=== PATIENT | male | born 1980 | race Caucasian/White ===

== ENCOUNTER 2019-11-06 01:57 | Emergency (ER) | payer OTHER, SELFPAY ==
--- NOTE | ~2019-11-06 | XR_ITS ---
EXAMINATION: XR chest 2V DATE: 11/06/2019 02:29 INDICATION: Midline chest pain. TECHNIQUE: Frontal and lateral views of the chest were obtained. COMPARISON: None. FINDINGS: The chest demonstrates clear lungs without pneumonia, pleural effusion, or pneumothorax. Th e heart size is normal. IMPRESSION: 1. No acute cardiopulmonary disease. Reviewed, dictated and finalized at location A.
[2019-11-06 01:56] VITALS: BP 117/66; PULSE 92; RESP 15; TEMP 37.4; O2SAT 100
--- NOTE | 2019-11-06 02:04 | ECG_ITS ---
Measurements Intervals [place] Rate: 76 P: 50 MS: 163 QRS: 44 QRSD: 104 T: 26 QT: 337 QTc: 379 Interpretive Statements SINUS RHYTHM WITH SINUS ARRHYTHMIA BASELINE ARTIFACT- I, II, AVR NORMAL ECG Electronically Signed On 11-06-2019 7:03:41 CDT by Eddie Pettit D.O.
[2019-11-06 02:05] VITALS: PULSE 77
[2019-11-06 02:13] LABS: Basophils Percent Auto 0.2 % (0.2-1.2); Eosinophils Absolute Auto 0.2 K/mm3 (0-0.3); Eosinophils Percent Auto 1.4 % (0-4.4); Hematocrit 45.9 % (42.0-52.0); Hemoglobin 15.2 g/dL (14.0-18.0); Immature Granulocyte Absolute 0.05 K/mm3 (0.00-0.031); Immature Granulocyte Percent A 0.4 % (0-0.5); Lymphocytes Absolute Auto 1.98 K/mm3 (0.9-3.2); Lymphocytes Percent Auto 15.3 % (18.3-44.2); Mean Corpuscular HGB Conc 33.1 g/dl (32-36); Mean Corpuscular Hemoglobin 28.3 pg (26-34); Mean Corpuscular Volume 85.5 fl (80-100); Mean Platelet Volume 10.6 fl (7.4-10.4); Monocytes Percent Auto 7.7 % (2.6-8.5); Neutrophils Absolute Auto 9.7 K/mm3 (1.3-6.7); Platelet Count Result 352 k/mm3 (150-375); Red Blood Count 5.37 M/mm3 (4.6-6.20); Red Cell Distribution Width 12.7 % (11.5-14.5); White Blood Count 12.9 K/mm3 (4.5-10.0)
[2019-11-06 02:22] LABS: Prothrombin Time 12.6 Seconds (11.1-14.7)
[2019-11-06 02:23] LABS: Partial Thromboplastin Time 26.2 SECONDS (22.3-36.8)
[2019-11-06 02:34] LABS: Blood Urea Nitrogen 12 mg/dL (9-20); Calcium 9.2 mg/dL (8.4-10.2); Carbon Dioxide 23 mmol/L (22-30); Chloride 104 mmol/L (98-107); Estimated CRCL calculation 89 ml/min; Estimated Glomerular Filt Rate > 60; Glucose 147 mg/dL (75-110); Potassium 3.2 mmol/L (3.4-5.0); Sodium 136 mmol/L (137-145)
[2019-11-06 02:46] LABS: Troponin I < 0.012 ng/mL (0.000-0.034)
--- NOTE | 2019-11-06 03:30 | ED.CHESTPAIN ---
HPI - Chest Pain General Chief Complaint: Chest Pain Stated Complaint: cp Time Seen by Provider: 11/06/19 03:24 History of Present Illness HPI narrative: Patient presents for 2 episodes of chest pain early this morning. Each lasted a couple minutes. He gauges the pain 8 out of 10. Associated with nausea and sweating. It was after smoking some marijuana, but he had smoked marijuana earlier yesterday and had no such side effects. He has never had chest pain like this before. It did not radiate. It is resolved now. He taken an aspirin and a Tums at home. His father of congestive heart failure at age 67. The patient has not had his cholesterol checked. His surgical history includes circumcision and tooth removal. He does not smoke or drink alcohol but does smoke marijuana. He has not been sick recently. He has a prescription for Xanax for his panic attacks. MD complaint: chest pain Pertinent past history: other (None) Onset (ago): hour(s) Timing of current episode: episodic Prior episodes: No Onset: during rest Pain location: substernal Pain radiation: none Severity: severe Review of Systems Review of Systems: Narrative: CONSTITUTIONAL: Denies fever, chills, or sweats. EYES: Denies visual changes, redness, or discharge. ENT: Denies rhinorrhea, congestion, sore throat, or otalgia. CARDIOVASCULAR: He had chest pain, but not palpitations, or edema. RESPIRATORY: Denies cough or dyspnea. GASTROINTESTINAL: Denies abdominal pain, nausea, vomiting, or diarrhea. GENITOURINARY: Denies dysuria or hematuria. SKIN: Denies rash or itching. MUSCULOSKELETAL: Denies back pain, joint pain, or myalgia. NEUROLOGIC: Denies headache, numbness, or weakness. PSYCHIATRIC: He has panic attack. [facility] Past Medical History Medical History Anxiety Surgical History Surgical History History of circumcision [place] teeth removed Family History Family History (Updated 10/27/19 @ 16:57 by Shey Hugo [facility]) Father Hypertension Diabetes mellitus High cholesterol Heart disease Grandparent Hypertension Diabetes mellitus High cholesterol Heart disease Breast cancer Glaucoma Mother Heart disease Parkinsons disease Social History Social History Smoking status: Former smoker Tobacco type: cigarettes Alcohol intake: never Gender identity (if verbalized by the patient): Male Exam Narrative: Exam Narrative: GENERAL: Well-appearing, well-nourished, and in no acute distress. Tall and overweight. HEAD: Normocephalic, atraumatic. EYES: PERRLA and EOMI. ENT: Nares clear, no rhinorrhea or epistaxis. Mucous membranes moist. NECK: Supple. CHEST: Clear to auscultation. No respiratory distress. HEART: Regular rate and rhythm. No murmur heard. Normal peripheral pulses. ABDOMEN: Soft, nontender, nondistended, normal active bowel sounds. EXTREMITIES: Normal range of motion. No edema. SKIN: Warm, dry, no rash. NEURO: No focal deficits. Alert and oriented x3. PSYCH: Normal mood and affect. Course Vital Signs Vital signs: Vital Signs Temperature 99.4 F 11/06/19 01:56 Pulse Rate 92 11/06/19 01:56 Respiratory Rate 15 11/06/19 01:56 Blood Pressure 117/66 11/06/19 01:56 Pulse Oximetry 100 11/06/19 01:56 Temperature 99.4 F 11/06/19 01:56 Pulse Rate 77 11/06/19 02:05 Respiratory Rate 15 11/06/19 01:56 Blood Pressure 117/66 11/06/19 01:56 Pulse Oximetry 100 11/06/19 01:56 MDM - Chest Pain Medical Records Data Attestation: I reviewed the patient's medical records. Lab Data Attestation: I reviewed the patient's lab results. Result diagrams: 11/06/19 02:06 11/06/19 02:06 Labs: Lab Results 11/06/19 11/06/19 11/06/19 Range/Units 02:06 02:06 02:06 WBC 12.9 H (4.5-10.0) K/mm3 RBC 5.37 (
[2019-11-06 04:07] VITALS: BP 118/67; PULSE 74; RESP 18; O2SAT 98
== END 2019-11-06 04:08 | disposition home or self-care (01) ==
PROVIDERS: Emergency Provider Emergency Medicine; PCP Family Medicine
DX: R07.89 Other chest pain (principal); F41.9 Anxiety disorder, unspecified; Z87.891 Personal history of nicotine dependence
CPT/HCPCS: 36415; 71046; 80048; 84484; 85025; 85610; 85730; 93005; 99284

== ENCOUNTER 2020-08-11 14:38 | Outpatient (CLI) | payer OTHER, SELFPAY ==
--- NOTE | ~2020-08-11 | XR_ITS ---
EXAMINATION: XR chest 2V DATE: 08/11/2020 15:15 INDICATION: Shortness of breath. TECHNIQUE: Frontal and lateral views of the chest were obtained. COMPARISON: Chest 2 views 11/06/2019 FINDINGS: The chest demonstrates clear lungs without pneumonia, pleural effusion, or pneumothorax. Th e heart size is normal. IMPRESSION: 1. No acute cardiopulmonary disease. Reviewed, dictated and finalized at location A.
== END 2020-08-11 14:39 ==
PROVIDERS: PCP Family Medicine; Visit Provider Physician Assistant
DX: R06.02 Shortness of breath (principal)
CPT/HCPCS: 71046